=== PATIENT | male | born 1980 | race Caucasian/White ===

== ENCOUNTER 2020-05-13 21:16 | Emergency (ER) | payer OTHER, MEDICAID, SELFPAY ==
[2020-05-13 21:17] VITALS: BP 161/107; PULSE 65; RESP 15; TEMP 36.2; O2SAT 97; BMI 31.7
[2020-05-13 22:15] LABS: Absolute Lymphocyte Count 3.02 X10^3/uL (0.83-4.51); Absolute Neutrophil Count 4.7 X10^3/uL (2.0-7.7); Basophil# 0.05 X10^3/uL; Basophil% 0.6 % (0-1); Eosinophil# 0.19 X10^3/uL; Eosinophils% 2.2 % (0-5); Hematocrit 43.1 % (40-54); Hemoglobin 13.6 g/dL (13.0-16.5); Lymphocyte # 3.02 X10^3/ul (4.0); Lymphocyte % 34.9 % (19-41); Mean Corp Hgb Conc 31.6 g/dL (32-36); Mean Corpuscular Hgb 28.6 pg (27.0-32.0); Mean Corpuscular Volume 90.5 fL (80-94); Mean Platelet Vol. 9.5 fl (6.2-12.0); Monocyte# 0.64 X10^3/uL; Monocyte% 7.4 % (0-10); NRBC Flagged by Analyzer 0 % (0-5); Neutrophil % 54.3 % (47-70); Platelet Count 304 K/mm3 (150-450); RBC Distribution Width CV 12.5 % (11.6-14.6); RBC Distribution Width SD 41.7 fl (35.1-43.9); Red Blood Count 4.76 M/mm3 (4.6-6.2); White Blood Count 8.7 K/mm3 (4.4-11.0)
[2020-05-13 22:28] LABS: Anion Gap 5 (5-15); BUN 8 mg/dL (7-18); BUN/Creat Ratio 10.9 RATIO (10-20); Calcium,Total 8.7 mg/dL (8.5-10.1); Chloride 105 mmol/L (98-107); Creatinine, Serum 0.74 mg/dL (0.70-1.30); EST Glomerular Filtration Rate 126 mL/min (>60); Est Glom Filt Rate - Afr Amer 152 mL/min (>60); Estimated Creatinine Clearance 134.02 ml/min; Glucose 97 mg/dL (74-106); Potassium 3.9 mmol/L (3.5-5.1); Sodium Level 140 mmol/L (136-145)
--- NOTE | 2020-05-13 22:36 | ED.DCSUM_ITS ---
- ER Visit Summary Date of Service: 05/13/20 Chief Complaint: Depression History of Present Illness: The patient is a 39 M presenting with depression. Patient states that he has been very depressed over the past week. He and his are considering a divorce. He has had issues at work as well. He was p reviously on Zoloft which was switched to Effexor and then to Prozac. He has been on Prozac for the past 4 months. He states he does not have a suicide plan but feels that he would be better off if he was not around. He denies alcohol or drug use. Physical Examination: Vitals are stable. Patient is afebrile. Alert no acute distress. HEENT exam is unremarkable. Neck is supple. Lungs are clear and equal bilaterally. Heart is regular rate and rhythm. Extremities are unremarkable. Skin is warm and dry. No focal neurologic deficit. Depressed affect Remainder of exam is unremarkable. Emergency Department Course and Treatment: CBC, chemistries unremarkable. Alcohol negative. Tox is pending. Discussed with counseling center for evaluation. Disposition: per counseling center Impression: Depression This note was generated with [employer] dictation software. It may contain incorrect words, spelling, and punctuation that were not noted in review of the chart prior to signing ED Disposition - Plan for ED Patient: Referrals: Addy Ambriz PA [Primary Care Provider] -
[2020-05-13 22:52] LABS: Amphetamine Urine VISTA NEGATIVE (<1000 ng/mL); Barbiturate Urine VISTA NEGATIVE (< 200 ng/mL); Benzodiazepine Urine VISTA NEGATIVE (< 200 ng/mL); Cocaine Urine VISTA NEGATIVE (< 300 ng/mL); Ecstacy Urine VISTA NEGATIVE (< 500 ng/mL); Methadone Urine VISTA NEGATIVE (< 300 ng/mL); PCP Urine VISTA NEGATIVE (< 25 ng/mL); THC Urine VISTA NEGATIVE (< 50 ng/mL); Vista UDS pH Range 5
--- NOTE | 2020-05-13 22:55 | NURSING ---
CALLED CRISIS AT [phone]
[2020-05-13 23:19] VITALS: BP 135/84; PULSE 58; RESP 17; O2SAT 98
[2020-05-14] VITALS: RESP 16
--- NOTE | 2020-05-14 01:36 | ED.DEP ---
ED Disposition - Plan for ED Patient: Disposition: Home or Assisted Living Diagnosis: Depression Instructions: ED Depression Referrals: Counseling,Center [GROUP OF PHYSICIANS] - 1 Day
[2020-05-14 01:41] VITALS: PULSE 82; RESP 15; O2SAT 98
== END 2020-05-14 02:47 | disposition home or self-care (01) ==
PROVIDERS: Emergency Provider Emergency Medicine; PCP Physician Assistant
DX: F32.9 Major depressive disorder, single episode, unspecified (principal)
CPT/HCPCS: 36415; 80048; 80307; 82077; 85025; 99282

== ENCOUNTER 2020-06-15 20:32 | Emergency (ER) | payer OTHER, MEDICAID, SELFPAY ==
[2020-06-15 20:33] VITALS: BP 141/76; PULSE 61; RESP 16; TEMP 36; O2SAT 97; BMI 31.7
--- NOTE | 2020-06-15 20:51 | ED.DCSUM_ITS ---
History of Present Illness Chief Complaint: Burn Detail of Chief Complaint: Forehead near hairline on the right, inferior right orbit and right hand Onset: Hours Context: Sudden Onset Timing: Continuous Quality: Burning pain Location: Right side of face and right hand dorsal surface Current Severity: Mild Maximum Severity: Moderate Worsened by: Hot radiator fluid Relieved by: Nothing Associated Symptoms: Discomfort Narrative: Patient is a 39-year-old adoui-kikv-pakqrrxt male presents because of lerma to his face and hand. Is concerned that his eye is involved. He denies photophobia. He states his eye does not want to stay open. He is able to open and close his eye. He states his last tetanus was between 5 and 10 years. He denies allergy to NSAIDs and has no contraindication. Prior similar symptoms: No Recent Illness/Hospitalization: No - Past Medical History (1) History of depression Status: Acute Past Medical History - Allergies and Home Meds Allergies/Adverse Reactions: Allergies piperacillin [From Zosyn] Allergy (Verified 06/15/20 20:33) Hives tazobactam [From Zosyn] Allergy (Verified 06/15/20 20:33) Hives BENACAR Allergy (Uncoded 06/15/20 20:33) NEEDS FOLLOW-UP Primary Care Physician: Addy Ambriz PA [Primary Care Provider] - Prior records reviewed: No Surgical History: noncontributory Lives: Alone Smoking Status: Never smoker Alcohol: None Drugs: None Review of Systems Eyes: Reports: - - Pain over the right maxillary region inferior the right orbit. Denies: Visual changes - bilaterally, Blurred Vision - bilaterally, Diplopia ENT: Denies: Bilateral ear pain, Rhinorrhea Skin: Reports: Wounds - Superficial burn forehead and face right side and dorsum right hand near the webspace between the thumb and index finger. Neurological: Denies: Weakness, Parasthesia, Numbness Hematologic: Denies: Easy bruising Physical Exam Vital Signs/Narrative: Vital Signs Temp Pulse Resp BP Pulse Ox 06/15/20 20:33 96.8 F L 61 16 141/76 H 97 Inital Vital Signs reviewed: Yes General: Well nourished, Well developed, Obese Head: Normocephalic, Atraumatic Eyes: Perrl, EOMI ENT: - - There is no abnormality eyelashes. There is no abnormality of the lateral press. Pupils equal round reactive. Extract muscle intact. Sclerae anicteric. Conjunctive is normal. Superficial burn inferior the lower eyelashes. Cardiovascular: Regular rate, Regular rhythm Respiratory: No distress Extremities: No edema, Tenderness - Due to superficial burn dorsum right hand as previously described Skin: Trauma - Superficial burn right side of face and hand Neurological: Alert, Oriented x3, Cranial nerves II-XII grossly intact, Normal Strength, Normal Sensation Psychological: Normal affect Diagnostic/Tx/Re-eval - Medical Decision Making Superficial burn without blistering. Treatment aspirin and appropriate home- going instructions. There is no evidence infection. ED Disposition - Plan for ED Patient: Disposition: Home or Assisted Living Diagnosis: Superficial burn of face, Superficial burn of right hand Instructions: ED Burn, Hot Water Referrals: Addy Ambriz PA [Primary Care Provider] - As Needed
== END 2020-06-15 21:11 | disposition home or self-care (01) ==
LOC: ED 21:02
PROVIDERS: Emergency Provider Emergency Medicine; PCP Physician Assistant
DX: T20.00XA Burn of unspecified degree of head, face, and neck, unspecified site, initial encounter (principal); T23.001A Burn of unspecified degree of right hand, unspecified site, initial encounter; Y92.9 Unspecified place or not applicable
CPT/HCPCS: 99282

== ENCOUNTER 2023-09-18 11:36 | Emergency (ER) | payer OTHER, SELFPAY ==
[2023-09-18 11:36] VITALS: BP 133/81; PULSE 60; RESP 14; TEMP 37.2; O2SAT 100; BMI 36.4
[2023-09-18] MEDS: Mag Hydrox/Al Hydrox/Simeth 30 ML UDC PO (11:56)
[2023-09-18] MEDS: Lidocaine 2% Viscous15 ML UDC 15 ML PO (11:56)
--- NOTE | 2023-09-18 12:02 | EDS_ITS ---
HPI <LUIS ENRIQUE Mendoza - Last Filed: 09/18/23 12:51> History of Present Illness Chief Complaint: Sore Throat Narrative Narrative: Patient is a 42-year-old male with history of anxiety, depression, lung nodules who presents to the emergency department complaining of sore throat, right-sided chest pain. 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 Patient denies any fever or chills, nausea or vomiting. PFSH <LUIS ENRIQUE Mendoza - Last Filed: 09/18/23 12:51> [facility] Medications ?Medication ?Instructions ?Recorded ?Last Taken ?Type fluoxetine 10 mg tablet 50 mg PO DAILY 05/13/20 Unknown History hydroxyzine HCl 25 mg tablet 25 mg PO TID PRN PRN Anxiety 05/13/20 Unknown History Allergy/AdvReac Type Severity Reaction Status Date / Time olmesartan (From Benicar) Allergy NEEDS Verified 09/18/23 11:36 FOLLOW-UP piperacillin (From Zosyn) Allergy Hives Verified 09/18/23 11:36 tazobactam (From Zosyn) Allergy Hives Verified 09/18/23 11:36 Surgical History (Updated 09/18/23 @ 12:16 by Sandie Starr) H/O repair of rotator cuff H/O bariatric surgery Social History Smoking Status: Current every day smoker tobacco type: cigarettes ROS <LUIS ENRIQUE Mendoza - Last Filed: 09/18/23 12:51> ROS ED ROS Narrative Constitutional: Negative for fever, chills, weight loss, weakness Eyes: Negative for vision loss, vision change, double vision ENT: Negative for any ear pain, congestion. Positive for sore throat Cardiovascular: Negative for any tightness, palpitations. Positive right-sided chest pain Respiratory: Negative for any cough, sputum production, hemoptysis, dyspnea, dyspnea on exertion, orthopnea Gastrointestinal: Negative for any abdominal pain, nausea, vomiting, diarrhea, constipation, blood in stool, blood in vomit : Negative for any urinary frequency, dysuria, retention, blood in urine Muscle skeletal: Negative for any neck pain, back pain Neurological: Negative for any headache, syncope, dizziness Skin: Negative for any rashes, itching, abrasions, lacerations Psychiatric: Negative for any depression, anxiety, stress, suicidal ideation, homicidal ideation Hematologic: Negative for any excessive bruising, easy bleeding EXAM <LUIS ENRIQUE Mendoza - Last Filed: 09/18/23 12:51> Physical Exam Narrative Exam Narrative: Vital signs reviewed. HEET: Head normocephalic atraumatic, TMs clear bilaterally. Posterior pharynx is clear, moist mucous membranes. Nares clear bilaterally. Neck: Supple with no lymphadenopathy or tenderness. No signs of meningismus. Cardiac: Regular rate and rhythm no murmurs gallops or rubs, equal peripheral p ulses bilaterally. Respiratory: Lungs clear to auscultation bilaterally. No chest tenderness. Abdomen: Soft, nontender, nondistended. No abdominal bruit or pulsatile masses. No hepatosplenomegaly Extremities: No peripheral edema, no signs of gross trauma or deformity. Active full range of motion of all extremities. Neuro: Cranial nerves II through XII intact, no focal neurological deficits. Skin: Clean dry and intact with no rash, purpura, petechiae, vesicles or pustules. Backs/flank: No CVA tenderness, no midline spinal tenderness, no deformity. Psych: Normal mood and affect. No SI, HI or acute psychosis. Const Vital Signs: 09/18/23 11:36 09/18/23 12:56 Temperature 99 F 97.9 F Temperature Source Temporal Pulse Rate 60 62 Respiratory Rate 14 16 Blood Pressure 133/81 H 130/75 H Blood Pressure Mean 98 93 Pulse Ox 100 99 Oxygen Delivery Method Room Air <Dr. Abdi Burden MD - Last Filed: 09/18/23 15:12> Physical Exam Const Vital Signs: 09/18/23 11:36 09/18/23 12:56 Temperature 99 F 97.9 F Temperature Source Temporal Pulse Rate 60 62 Respiratory Rate 14 16 Blood Pressure 133/81 H 130/75 H Blood Pressure Mean 98 93 Pulse Ox 100 99 Oxygen Delivery Method Room Air MDM <LUIS ENRIQUE Mendoza - Last Filed: 09/18/23 12:51> MDM Radiography Diagnostic Testing: Clinical Impression(s) from Imaging Studies Chest X-Ray 09/18/23 12:05 IMPRESSION: Minimal increased markings in the lingular segment of the left upper lobe suggestive of atelectasis and/or early infiltrate. Electronically Signed: Maxwell Ham MD at 12:17 EDT , Treatment and Re-Evaluation :: Differential diagnosis includes however is not limited to: Chemical burn to the throat, pneumonia, acute on chronic pain Patient appears to be in no obvious distress vital signs are stable. Patient presents to the emergency department with complaints of sore throat, right-sided lung pain secondary to possibly inhalation injury. Patient will receive a two- view chest x-ray, I did order the patient a GI cocktail lidocaine to help his throat. All radiologic examinations were read, reviewed by the emergency department attending. From these reads, a plan of care will be put in place. Patient's chest x-ray two-view showed no acute process. Small bilateral axis. Patient reevaluation was in no obvious distress. At this time, patient will be discharged home. Instructed to use his mask while performing his duties at work. He verbally understands, he is instructed return for any worsening symptoms. <Dr. Abdi Burden MD - Last Filed: 09/18/23 15:12> [facility] MDM Narrative Medical decision making narrative: I have personally performed a face to face assessment of the patient and have reviewed the RAZA Note. I performed a substantive portion of the visit including all aspects of the following. My wesley findings include: History is remarkable sore throat. 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 He is concerned he may have inhaled rat feces etc. Patient denies fever, chills night sweats. Patient does complain of throat pain. Denies rhinorrhea, congestion or postnasal drainage. He does have a slight cough. He is a smoker. His cough is nonproductive. He denies chest discomfort on the left but does complain of chest discomfort on the right. Abdomen is soft nontender. Exam is unremarkable. HEENT exam is normal. Lung exam is normal. Cardiovascular exam is normal. Medical Decision Making 2 view chest x-ray was obtained. There appears to be scarring or atelectasis left side in the distribution of the lingular lobe. There is no effusion or pneumothorax noted. Cardiac size and silhouette normal. Hilum is normal. Osseous structures are unremarkable. 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 Radiography Chest X-Ray - ED: 2 View and Read by ED Physician (Reviewed interpreted by me as negative for acute process. There is some abnormality in the area of the lingular lobe which probably represents atelectasis. 2 views were obtained.) Diagnostic Testing: Clinical Impression(s) from Imaging Studies Chest X-Ray 09/18/23 12:05 IMPRESSION: Minimal increased markings in the lingular segment of the left upper lobe suggestive of atelectasis and/or early infiltrate. Electronically Signed: Maxwell Ham MD at 12:17 EDT , Discharge Plan Triage Chief Complaint: Sore Throat ED Midlevel Provider: Varghese Capps ED Provider: Abdi Burden Dx/Rx/DC Orders Clinical Impression: Inhalation injury, Acute sore throat Instructions: Controlled Breathing, Airway Clearance Techniques Prescriptions: No Action fluoxetine 10 MG tablet 50 mg PO DAILY hydroxyzine HCl 25 MG tablet 25 mg PO TID PRN PRN (Reason: Anxiety) Stand Alone Forms: ED Work / School Excuse Primary Care Provider: Addy Ambriz Referrals: Addy Ambriz, MARY [Primary Care Provider] - Activity Restrictions/Additional Instructions: You had a normal chest x-ray, you may use Chloraseptic spray for your throat. Make sure that you wear your mask during work hours. Print Language: Arabic Disposition Disposition: Home, Self Care Discharge Date/Time: 09/18/23 12:57
--- NOTE | 2023-09-18 12:05 | RAD_ITS ---
STUDY: X-RAY CHEST REASON FOR EXAM: Male, 42 years old. Cough TECHNIQUE: PA and lateral views of the chest. COMPARISON: None. FINDINGS: Azygos lobe in the right apex. This is a normal variant. Minimal increased markings in the lingular segment of the left upper lobe suggestive of either atelectasis and/or early infiltrate. There is no demonstrated pleural abnormality. Normal size heart. Normal mediastinum and ban. Normal visualized pulmonary arteries. Normal visualized aortic arch and descending thoracic aorta. Normal visualized thoracic spine. Normal visualized ribs, clavicles, and shoulders. There is no demonstrated abnormality of the visualized soft tissue structures of the upper abdomen. RAD/Chest PA and Lateral IMPRESSION: Minimal increased markings in the lingular segment of the left upper lobe suggestive of atelectasis and/or early infiltrate. Electronically Signed: Maxwell Ham MD at 12:17 EDT ,
[2023-09-18 12:56] VITALS: BP 130/75; PULSE 62; RESP 16; TEMP 36.6; O2SAT 99
== END 2023-09-18 12:57 | disposition home or self-care (01) ==
PROVIDERS: Emergency Provider Emergency Medicine; PCP Physician Assistant; Visit Provider Emergency Medicine
DX: J02.9 Acute pharyngitis, unspecified (principal); F17.210 Nicotine dependence, cigarettes, uncomplicated
CPT/HCPCS: 71046; 99282